=== PATIENT | female | born 1990 | race African-American/Black ===

== ENCOUNTER 2021-04-12 22:16 | Emergency (ER) | payer MEDICAID ==
[2021-04-12 23:08] LABS: BILIRUBIN,URINE NEGATIVE (NEGATIVE); CLARITY,URINE HAZY (CLEAR); GLUCOSE, URINE (UA) NEGATIVE (NEGATIVE); KETONES,URINE (UA) NEGATIVE (NEGATIVE); LEUKOCYTE ESTERASE, URINE NEGATIVE (NEGATIVE); NITRITE,URINE POSITIVE (NEGATIVE); OCCULT BLOOD,URINE NEGATIVE (NEGATIVE); PH,URINE 6.5 PH (5.0-7.5); PROTEIN,URINE NEGATIVE (NEGATIVE); UROBILINOGEN,URINE 0.2 (NORMAL) E.U./dL (NORMAL)
--- NOTE | 2021-04-12 23:08 | ED Physician Documentation ---
PD HPI FEMALE - Stated complaint Stated Complaint: FEMALE - Chief complaint Chief Complaint: General - History obtained from History obtained from: Patient - History of Present Illness Timing - onset: How many days ago (2-3) Timing - details: Gradual onset Pain level max: 0 Pain level max: 0 Associated symptoms: No: Fever Contributing factors: No: Recently seen: Not recently seen - Additional information Additional information: c/o 2-3 days of thick white, malodorous vaginal discharge. Earlier today she was contacted by a recent sexual partner and this person told patient that she tested positive for trichomoniasis yesterday, and this constitutes patients chief concern. Review of Systems Constitutional: denies: Fever : reports: Discharge. denies: Dysuria, Frequency, Hematuria, Now EGA Skin: denies: Lesions PD PAST MEDICAL HISTORY - Past Medical History Past Medical History: No Cardiovascular: None Respiratory: None Neuro: None Endocrine/Autoimmune: None GI: None FLUTE POLISHER: None : None HEENT: None Psych: None Musculoskeletal: None Derm: None - Past Surgical History Past Surgical History: Yes /FLUTE POLISHER: section - Present Medications Home Medications: Ambulatory Orders Medication Instructions Recorded Confirmed Levonorgestrel 20 Mcg/24H [Mirena] 1 each IY ONCE 04/12/21 04/12/21 - Allergies Allergies/Adverse Reactions: Allergies Allergy/AdvReac Type Severity Reaction Status Date / Time No Known Drug Allergies Allergy Verified 04/12/21 22:29 - Social History Does the pt smoke?: Yes Smoking Status: Current every day smoker Does the pt drink ETOH?: Yes Does the pt have substance abuse?: No - POLST Patient has POLST: No PD ED PE NORMAL - Vitals Vital signs reviewed: Yes - General General: Alert and oriented X 3, No acute distress, Well developed/nourished - Abdomen Abdomen: Soft, Non tender Results - Vitals Vitals: Vital Signs - 24 hr 04/12/21 04/13/21 22:27 00:48 Temperature 36.0 C L Heart Rate 122 H 97 Respiratory 16 17 Rate Blood Pressure 174/106 H 156/89 H O2 Saturation 98 99 Oxygen O2 Source Room air - Labs Labs: Microbiology 04/12/21 22:00 Urine Culture - Preliminary Urine,Clean Catch CULTURE IN PROGRESS. RESULTS TO FOLLOW. Laboratory Tests 04/12/21 04/12/21 04/12/21 22:00 23:35 23:35 Urine Color YELLOW Urine Clarity HAZY Urine pH 6.5 Ur Specific [place] 1.025 Urine Protein NEGATIVE Urine Glucose (UA) NEGATIVE Urine Ketones NEGATIVE Urine Occult Blood NEGATIVE Urine Nitrite POSITIVE H Urine Bilirubin NEGATIVE Urine Urobilinogen 0.2 (NORMAL) Ur Leukocyte Esterase NEGATIVE Urine RBC 0-5 Urine WBC 4-5 Ur Squamous Epith Cells FEW Squamous Urine Bacteria Many H Ur Microscopic Review INDICATED Urine Culture Comments INDICATED Urine HCG, Qual NEGATIVE C. glabrata (PCR) NEGATIVE C. krusei (PCR) NEGATIVE Wanda species DNA NEGATIVE Chlam trachomat DNA PCR NEGATIVE N.gonorrhoeae DNA (PCR) NEGATIVE T. vaginalis (PCR) POSITIVE A POSITIVE A Bact Vaginosis (PCR) POSITIVE A PD MEDICAL DECISION MAKING - ED course Complexity details: considered differential, d/w patient ED course: swabs sent for BV panel and gc/chlamydia/trich (patient self-swabbed). On initial HPI, she described her symptoms/discharge. It was only after these were obtained that she provided the more specific information regarding the recent exposure to trichomoniasis; given this exposure, she is given 2grams flagyl PO in ED (along with 4mg TL zofran to minimize potential for nausea from this high dose) and discharged. The tests are still pending at time of discharge and she can be called with any pertinent positive results that are not covered by the flagyl one-time dosing. Departure - Departure Disposition: 01 Home, Self Care Clinical Impression: Exposure to STD Condition: Good Instructions: ED Urethritis Infec Vs Inflam Fem Comments: You were given a one-time dose of antibiotic tonight (along with an anti-nausea medication) because of the recent exposure to an STD (trichomoniasis). At the time of being discharged from the emergency department, tests are pending including the test for trichomoniasis. However, given the recent exposure, it is appropriate to give the antibiotic as a preventive measure (in other words, if you are positive for trichomoniasis or not, given the exposure to this STD, you would be given the same medication at the same one-time dose). If your test for gonorrhea and/or chlamydia come back positive, you should receive a phone call from the hospital. A different antibiotic will likely be needed if this is the case. I recommend you sign up for the [facility] portal; this will allow you to check the results yourself (some positive results will not result in a phone call, such as wanda (yeast)). Discharge Date/Time: 04/13/21 00:50
[2021-04-12 23:09] LABS: HCG UR QUAL NEGATIVE
[2021-04-12 23:16] LABS: BACTERIA,URINE Many /HPF (None Seen); RBC,URINE 0-5 /HPF (0-5); SQUAMOUS EPITHELIAL CELL,UR FEW Squamous (<= Few)
[2021-04-13] MEDS ORDERED: ONDANSETRON ODT 4 MG TABLET TL STA (00:29)
[2021-04-13] MEDS ORDERED: metroNIDAZOLE 250 MG TABLET PO STA (00:29)
[2021-04-13 00:50] VITALS: BP 156/89
[2021-04-13 01:23] LABS: BACTERIAL VAGINOSIS DNA POSITIVE (NEGATIVE); CANDIDA GLABRATA DNA NEGATIVE (NEGATIVE); CANDIDA GROUP DNA NEGATIVE (NEGATIVE); CANDIDA KRUSEI DNA NEGATIVE (NEGATIVE); TRICHOMONAS VAGINALIS DNA POSITIVE (NEGATIVE)
[2021-04-13 02:36] LABS: CHLAMYDIA TRACHOMATIS DNA NEGATIVE (NEGATIVE); NEISSERIA GONORRHOEAE DNA NEGATIVE (NEGATIVE)
[2021-04-13 03:19] LABS: TRICHOMONAS VAGINALIS DNA POSITIVE (NEGATIVE)
== END 2021-04-13 00:50 | disposition home or self-care (01) ==
LOC: ED 22:16
DX: Z20.2 Contact with and (suspected) exposure to infections with a predominantly sexual mode of transmission (principal); F17.200 Nicotine dependence, unspecified, uncomplicated
CPT/HCPCS: 81001; 81025; 87086; 87181; 87481; 87491; 87591; 87661; 87801; 99283; A9270; Q0162; 81003